=== PATIENT | male | born 2000 | race Caucasian/White ===

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

== ENCOUNTER 2020-01-13 13:15 | Emergency (ER) | payer SELFPAY | END 2020-01-13 14:17 | disposition home or self-care (01) | LOC: ERS 13:15 | DX: L23.7 Allergic contact dermatitis due to plants, except food (principal); F17.220 Nicotine dependence, chewing tobacco, uncomplicated | CPT/HCPCS: 99283 ==

== ENCOUNTER 2020-01-14 18:29 | Emergency (ER) | payer SELFPAY ==
[2020-01-14] MEDS ORDERED: diphenhydrAMINE 25 MG CAP ONE (19:27)
[2020-01-14] MEDS ORDERED: Dexamethasone 10 MG/ML VIAL ONE (19:27)
== END 2020-01-14 19:47 | disposition home or self-care (01) ==
LOC: ERS 18:29
DX: L23.7 Allergic contact dermatitis due to plants, except food (principal); F17.210 Nicotine dependence, cigarettes, uncomplicated
CPT/HCPCS: 96372; 99282; J1100; Q0163